=== PATIENT | female | born 1990 | race Caucasian/White ===

== ENCOUNTER 2017-08-28 16:27 | Emergency (ER) | payer MEDICAID, OTHER ==
[~2017-08-28] VITALS: Wt 83.1 kg
[2017-08-28] MEDS ORDERED: CEPH-443 PO (18:21)
[2017-08-28] MEDS ORDERED: MED4DP PO (18:22)
[2017-08-28] MEDS ORDERED: ELIM TOP (18:22)
[2017-08-28] MEDS ORDERED: BEN25 PO (18:22)
--- NOTE | 2017-08-28 18:39 | ERD ---
ER Documentation Chief Complaint Chief Complaint RASHES, ONSET 1 WEEK, SENT BY PMD FOR EVAL POSSIBLE SCABIES HPI This is a 27-year-old female presents to the ER with a rash for the last week. Rash is located all over her body and she was treated for scabies by her PCP. Rash over the body has gotten better however she developed a rash over her face , which she was told with acne. Patient states that her body has still been itchy, however was controlled with Benadryl. She denies any fevers or chills. Patient denies any exposure to new foods, substances or medications. There are no sick contacts at home. ROS 12 point review of systems was done, all negative except per HPI. Medications Home Meds Active Scripts Diphenhydramine Hcl* (Benadryl*) 25 Mg Cap, 25 MG PO Q6, #30 CAP Prov:CASEY DWYER Jodi 08/28/17 Methylprednisolone* (Medrol* DOSE PACK) 4 Mg/Dose-Pack Tab.ds.pk, 4 MG PO . DIRECTED for 6 Days, PACKET Prov:CASEY DWYER C 08/28/17 Permethrin* (Elimite*) 5% Cr, 1 APPLIC TOP ONCE for 1 Day, TUB Prov:JUVENTINO DWYERNA C 08/28/17 Cephalexin* (Keflex*) 500 Mg Capsule, 500 MG PO BID for 7 Days, CAP Prov:REYMUNDOJUVENTINOCASEY C 08/28/17 Allergies Allergies: Coded Allergies: No Known Allergy (Verified , 08/28/17) PMhx/Soc History of Surgery: Yes (D and C) Anesthesia Reaction: No Hx Neurological Disorder: No Hx Respiratory Disorders: No Hx Cardiac Disorders: No Hx Psychiatric Problems: No Hx Miscellaneous Medical Probl: No Hx Alcohol Use: No Hx Substance Use: No Hx Tobacco Use: No Physical Exam Vitals Vital Signs Date Time Temp Pulse Resp B/P Pulse Ox O2 Delivery O2 Flow Rate FiO2 08/28/17 16:32 98.8 93 17 143/88 97 Physical Exam GENERAL: The patient is well developed and appropriate for usual state of health , in no apparent distress. HEENT: Atraumatic. Angioedema, no lip swelling, tongue swelling, eyes swelling. Patient does have dry chapped lips. CHEST: Clear to auscultation bilaterally. There are no rales, wheezes or rhonchi. HEART: Regular rate and rhythm. No murmurs, clicks, rubs or gallops. NEURO: Alert and oriented. SKIN: Acne on face, which is erythematous to touch with some areas of discharge. Small papules throughout the body. Negative Nikolsky sign. Procedures/MDM Differential Diagnosis: dermatitis, allergic urticaria, viral exanthem, insect bite, fungal infectio ,viral exanthem, hand foot mouth disease, , impetigo, cellulitis, abscess, bin milan syndrome, meningocemia, necrotizing fasciitis, myositis. Clinical suspcicion for necrotizing fasciitis or myositis is low. There are no skip leasions or pain away from the site of the rash. Clinical suspicion for bin milan syndrome is low. There is not history new medication use or mucosal involvement. At this time etiology of patient's rash is unknown. Body rash is suspicious for scabies to be treated with another round of permethrin. In regards to patient's facial rash this may be acne, however she does have some redness, and some areas where there is some yellow discharge, she will be treated for possible with Keflex patient also be given a short course of steroids. Told to follow-up with her jack spinner as soon as possible. Afebrile and well-appearing. Suspicion for Damon-Milan syndrome , necrotizing fasciitis is low. My medical decision making was shared with the patient she understands and agrees with plan. Departure Diagnosis: Primary Impression: Rash Condition: Stable Patient Instructions: Self-Care for Skin Rashes Additional Instructions: Call your primary care doctor TOMORROW for an appointment during the next 1-2 days.See the doctor sooner or return here if your condition worsens before your appointment time. CASEY DWYER Aug 28, 2017 18:39
== END 2017-08-28 18:41 | disposition home or self-care (01) ==
LOC: FTE 16:27
DX: R21 Rash and other nonspecific skin eruption (principal)
CPT/HCPCS: 99284